=== PATIENT | female | born 1965 | race Caucasian/White ===

== ENCOUNTER 2019-09-08 11:04 | Outpatient (CLI) | payer BC, SELFPAY ==
--- NOTE | 2019-09-08 11:14 | XR_ITS ---
WS: [id number] Lumbar spine, 3 views, today Clinical Data: ACUTE LOWER BACK PAIN Comparison: None. Findings: No compression fractures or subluxation is seen. No disc space narrowing is seen. The transverse proc esses and SI joints are normal. There is a large amount of fecal material within the colon. There is debris within the stomach which is moderately dilated. XR/XR lumbar spine 2-3V* [id number] Impression: Negative lumbar spine.
== END 2019-09-08 11:05 | disposition home or self-care (01) ==
LOC: WPI 11:09
PROVIDERS: Family Provider Family Medicine; PCP Nurse Practitioner
DX: M54.5 Low back pain (principal)
CPT/HCPCS: 72100

== ENCOUNTER 2020-06-02 07:44 | Outpatient (CLI) | payer BC, SELFPAY ==
--- NOTE | 2020-06-02 07:50 | MM_ITS ---
WS: [id number] BILATERAL DIGITAL SCREENING MAMMOGRAPHY WITH CAD CLINICAL INFORMATION: SCREENING HISTORY: Screening mammogram. No current complaints. COMPARISON: TECHNIQUE: Bilateral CC and MLO views. FINDINGS: The breasts are composed of heterogeneous fibroglandular density tissue, which can limit the detectio n of small underlying mass lesions. No suspicious mass, asymmetry, calcifications, or architectural d istortion. No evidence of malignancy. Biopsy clip right breast. MM/[id number] IMPRESSION: BI-RADS: 2-Benign FOLLOW UP: 1 Year Follow-up Recommend return to annual screening mammography.
== END 2020-06-02 07:45 | disposition home or self-care (01) ==
LOC: RADSHAW 07:48
PROVIDERS: PCP Family Medicine; Visit Provider Family Medicine
DX: Z12.31 Encounter for screening mammogram for malignant neoplasm of breast (principal)
CPT/HCPCS: 77067

== ENCOUNTER → 2021-07-10 12:07 | Outpatient (BNVA) | payer BC, SELFPAY | PROVIDERS: PCP Family Medicine; Visit Provider Internal Medicine | DX: Z20.822 Contact with and (suspected) exposure to COVID-19 (principal); Z12.11 Encounter for screening for malignant neoplasm of colon | CPT/HCPCS: 87635 ==

== ENCOUNTER 2021-07-17 06:45 | Day surgery (SDC) | payer BC, SELFPAY ==
[2021-07-12 13:17] VITALS: BMI 41.5
--- NOTE | 2021-07-17 07:18 | ANES.PREANE2 ---
Pre-Anesthetic Assessment Pre-Anesthetic Assessment: Height/Weight: Height 1.65 m Weight 113.398 kg Proposed Procedure: Operation Date: 07/17/21 08:00 Proposed Procedures p Colonoscopy 21436 z12.11(Not Applicable) - Mani Bhatia MD Was Beta Joel taken within 24 hours: N/A Was Clonidine taken within 24 hours: N/A Social: Social History: Tobacco and No alcohol Exam: Pre-Anes Outpt Exam: alert, oriented x 3 and regular rate & rhythm Airway: Submandibular: WNL Cervical ROM: WNL MP: 2 Dentition: Full Pulmonary: Pulmonary: COPD Metabolic: Metabolic: Hyperlipidemia and Morbid obesity Neuropsych: Neuropsych: Anxiety Anesthetic Plan: ASA status: 3 Anesthesia: MAC Risk of > 500 ml blood loss (7ml/kg in children): No PFSH Anesthesia PFSH: Social History (Updated 01/03/20 @ 10:56 by Berenice Lindqusit LPN) Smoking and tobacco status: current every day smoker Alcohol intake: current Data Anesthesia Cardiac Studies: No Data to Display
[2021-07-17 07:19] VITALS: BP 130/83; PULSE 83; RESP 18; TEMP 36.2; O2SAT 97
[2021-07-17] MEDS: sodium chloride 0.9% 1,000 ML 30 ML IV (07:24)
--- NOTE | 2021-07-17 07:50 | W.PM.OPSFHP ---
Same Day Surgery H&P Indication for Procedure/HPI DATE OF PROCEDURE: July 17, 2021 CHIEF COMPLAINT/INDICATIONFOR SURGICAL PROCEDURE: History of colon polyps PREOP DIAGNOSIS: History of colon polyp PLANNED PROCEDRUE: Operation Date: 07/17/21 08:00 Proposed Procedures p Colonoscopy 26305 z12.11(Not Applicable) - Mani Bhatia MD Medications/Allergies* Allergies/Adverse Reactions Allergy/AdvReac Type Severity Reaction Status Date / Time No Known Allergies Allergy Verified 07/17/21 07:26 Current Medications: Generic Name Dose Route Start Last Admin Trade Name Freq PRN Reason Stop Dose Admin Sodium Chloride 1,000 mls @ 30 mls/hr 07/17/21 07:00 07/17/21 07:24 Sodium Chloride 0.9% IV 07/18/21 06:59 30 mls/hr .Q24H RANDY Administration Pertinent History/Comorbid Conditions* Social History Smoking and tobacco status: current every day smoker Alcohol intake: current Pertinent Exam Findings alert, oriented x 3, clear to auscultation bilaterally, regular rate & rhythm, operative site marked and procedure specific exam findings Recommendations Surgery/Procedure today Coding Level of Care Code Acute [employer] Service [employer] for Smita Garcia
[2021-07-17 08:47] VITALS: BP 103/74; PULSE 87; RESP 16; TEMP 36.1; O2SAT 91
[2021-07-17 08:56] VITALS: BP 121/88; PULSE 81; RESP 16; O2SAT 93
--- NOTE | 2021-07-17 10:52 | ANE.PACU2 ---
Inpatient post-anesthesia follow up: Airway intact: Yes Vital signs: Temperature 97.0 F Pulse Rate 81 Respiratory Rate 16 Blood Pressure 121/88 Pulse Oximetry 93 Oxygen Delivery Me thod Room Air Oxygen Flow Rate Fraction of Inspir ed Oxygen Hydration adequate: Yes Nausea and vomiting: No Mental status: Baseline
== END 2021-07-17 09:14 | disposition home or self-care (01) ==
PROVIDERS: PCP Family Medicine; Visit Provider Internal Medicine
PROC: 0DJD8ZZ Inspection of Lower Intestinal Tract, Via Natural or Artificial Opening Endoscopic (ICD-10-PCS; CPT 45378; principal; 2021-07-17 08:00)
DX: Z86.010 Personal history of colon polyps (principal); K57.30 Diverticulosis of large intestine without perforation or abscess without bleeding; F17.200 Nicotine dependence, unspecified, uncomplicated
CPT/HCPCS: 45378; 96360; 96361; J2704; J7030

== ENCOUNTER 2021-08-14 15:08 | Outpatient (CLI) | payer BC, SELFPAY ==
--- NOTE | 2021-08-14 15:14 | MM_ITS ---
WS: [id number] BILATERAL DIGITAL SCREENING MAMMOGRAPHY WITH CAD CLINICAL INFORMATION: SCREENING HISTORY: Screening mammogram. No current complaints. COMPARISON: June 02, 2020 TECHNIQUE: Bilateral CC and MLO views. FINDINGS: Scattered fibroglandular densities bilaterally. Biopsy clip upper outer right breast. Stable punctate calcifications. No suspicious focal mass, asymmetry, calcifications, or architectural distortion. No evidence of malignancy. MM/[id number] IMPRESSION: BI-RADS: 2-Benign FOLLOW UP: 1 Year Follow-up Recommend return to annual screening mammography.
== END 2021-08-14 15:09 | disposition home or self-care (01) ==
LOC: RADSHAW 15:12
PROVIDERS: PCP Nurse Practitioner Family; Visit Provider Nurse Practitioner Family
DX: Z12.31 Encounter for screening mammogram for malignant neoplasm of breast (principal)
CPT/HCPCS: 77067

== ENCOUNTER 2022-08-31 13:57 | Outpatient (CLI) | payer BC, SELFPAY ==
--- NOTE | 2022-08-31 14:06 | MM_ITS ---
WS: [id number] BILATERAL 3D TOMOSYNTHESIS DIGITAL SCREENING MAMMOGRAPHY WITH CAD CLINICAL INFORMATION: SCREENING HISTORY: Screening mammogram. No current complaints. COMPARISON: August 14, 2021 TECHNIQUE: Bilateral CC and MLO views. FINDINGS: Scattered fibroglandular densities bilaterally. No suspicious focal mass, asymmetry, calcifications, or architectural distortion. No evidence of malignancy. Biopsy clip upper outer quadrant. Stable punc starkey calcifications. A few stable intramammary lymph nodes. MM/[id number] IMPRESSION: BI-RADS: 2-Benign FOLLOW UP: 1 Year Follow-up Recommend return to annual screening mammography.
== END 2022-08-31 13:58 | disposition home or self-care (01) ==
LOC: RAD 14:01
PROVIDERS: PCP Family Medicine; Visit Provider Family Medicine
DX: Z12.31 Encounter for screening mammogram for malignant neoplasm of breast (principal)
CPT/HCPCS: 77063; 77067

== ENCOUNTER 2023-09-03 08:15 | Outpatient (CLI) | payer BC, SELFPAY ==
--- NOTE | 2023-09-03 08:20 | MM_ITS ---
WS: [id number] Bilateral screening 3D tomosynthesis digital mammogram, 09/03/2023 Clinical Data: SCREENING Comparison: 08/31/2022, 08/14/2021, 06/02/2020, 04/20/2019, 07/24/2016, 05/25/2015, 02/03/2014, 08/04/2012, 05/29/2011, 12/17/2008, 07/28/2007. Findings: The breast parenchymal pattern shows fibroglandular tissue. No spiculated masses or clustered calcifi cations are seen. There are no secondary signs of carcinoma. There is a biopsy clip in the upper oute r quadrant of the right breast. There are lymph nodes in both axilla. Impression: 1. Negative bilateral mammogram unchanged. 2. Recommend annual screening mammograms. MM/[id number] BIRADS: 1-Negative FOLLOW UP: 1 Year Follow-up The CAD electric distribution checker was used.
== END 2023-09-03 08:16 | disposition home or self-care (01) ==
LOC: RAD 08:15
PROVIDERS: PCP Family Medicine; Visit Provider Family Medicine
DX: Z12.31 Encounter for screening mammogram for malignant neoplasm of breast (principal)
CPT/HCPCS: 77063; 77067

== ENCOUNTER 2024-09-07 08:35 | Outpatient (CLI) | payer BC, SELFPAY ==
--- NOTE | 2024-09-07 08:36 | MM_ITS ---
WS: [id number] BILATERAL SCREENING DIGITAL TOMOSYNTHESIS MAMMOGRAM WITH CAD HISTORY: SCREENING COMPARISON: 09/03/2023, 08/31/2022, 08/14/2021 Bilateral CC and MLO views with tomosynthesis and synthetic mammography submitted. Computer aided det ection analyzed. Breast composition: There are scattered areas of fibroglandular density. No suspicious masses, microc alcifications or architectural distortion. Prior biopsy clip in the upper outer quadrant of the RIGHT breast with associated calcifications. No new mass or distortion. Calcifications are reidentified in the upper outer quadrant with minimal increase in number since the prior studies. MM/MM scr BI tomosynthesis [id number] IMPRESSION: BI-RADS: 2 - Benign. FOLLOW UP: 1 Year Follow-up
== END 2024-09-07 08:36 | disposition home or self-care (01) ==
LOC: RAD 08:36
PROVIDERS: PCP Family Medicine; Visit Provider Family Medicine
DX: Z12.31 Encounter for screening mammogram for malignant neoplasm of breast (principal); R92.323 Mammographic fibroglandular density, bilateral breasts; R92.1 Mammographic calcification found on diagnostic imaging of breast
CPT/HCPCS: 77063; 77067